=== PATIENT | female | born 1945 | race Hispanic/Latino ===

== ENCOUNTER 2017-02-10 11:32 | Day surgery (SDC) | payer OTHER ==
[~2017-02-10 11:32] MED LIST: AK-Dilate OS ONE; IOPIDINE OS ONE; MYDRIACYL OS ONE
[2017-02-10] MEDS ORDERED: IOPIDINE OS ONE ×2 (11:40)
[2017-02-10] MEDS ORDERED: AK-Dilate OS ONE ×3 (11:41)
[2017-02-10] MEDS ORDERED: MYDRIACYL OS ONE ×3 (11:41)
[2017-02-10] MEDS ORDERED: MYDRIACYL ONE (11:47)
[2017-02-10] MEDS ORDERED: IOPIDINE ONE ×2 (11:47→12:13)
[2017-02-10] MEDS ORDERED: AK-Dilate ONE (11:48)
[2017-02-10 11:50] VITALS: BP 160/88
== END 2017-02-10 13:06 | disposition home or self-care (01) ==
LOC: OR 11:32
PROVIDERS: ATTEND Ophthalmology
DX: H26.492 Other secondary cataract, left eye (principal)